=== PATIENT | male | born 1950 | race Caucasian/White ===

== ENCOUNTER → 2018-12-13 | Outpatient (CLI) | payer OTHER ==
[2018-10-29 15:00] VITALS: BP 125/48
[~2018-12-13] MED LIST: BETA15CR5 TP; BUPR150T6 PO; CRESTOR20 MG PO; DULO30CA2 PO; GABA300C18 PO; GLIP5TAB10 PO; MELO7.5T29 PO; PANT40TA77 PO; PIOG1TAB8 PO; TAMS0.4C97 PO; TIZA4CAP PO
--- NOTE | 2018-12-13 23:36 | PAIN ---
DATE OF SERVICE: 12/13/2018 INITIAL CONSULTATION FOR PAIN CLINIC CHIEF COMPLAINT: Low back and bilateral lower extremity pain, right greater than left. HISTORY OF PRESENT ILLNESS: This is a 68-year-old male who presents with history of pain in the low back radiating to bilateral lower extremities, mostly in the posterolateral thighs, posterior gluteus, lateral anterior thigh, medial thigh on the right side, worse with walking and standing. The patient reports it is going on for many years, worse over the past year or so. The patient did have surgery about 2 years ago in 2017, lumbar diskectomy, which he reports helped the pain, but only for a few months and the pain returned exactly as it was. The patient also has some pain in the mid upper back, but his main complaint is low back and right greater than left lower extremity. The patient reports the pain is constant, sharp, stabbing, throbbing, shooting, radiating in the right leg greater than the left, but present bilaterally. The patient reports it is worse with walking, standing, changing positions, getting up from a seated position as awakening him from sleep at night at least 2-3 times, does not affect his bowel or bladder control, but does affect his ability to walk. He is not using any assistive device such as canes or crutches; however. The patient has had previous physical therapy, chiropractic treatment in the past, epidural injections at outside facilities all which have helped the pain to a moderate extent. The patient reports he is taking oxycodone, which does decrease the pain by half a pill 2 weeks ago and Aleve, which helps by a small amount he takes at each night before he goes to sleep. The patient reports still is disturbing his sleep fairly significantly, however. The patient reports no loss of motor function, but significant fatigability with lower extremities with ambulation, standing, walking and even sitting for more than 10-15 minutes, sleeping has some pain as well. The patient rates his disability from 0-10, 10 being the worst, is a 9 with family home responsibilities, recreation, social activity, occupation and sexual behavior, 7 with self-care, 5 with life-support activities. The patient did have MRI scan of the lumbar spine showing L4-L5, severe canal narrowing with broad-based posterior disk bulge and superimposed central disk protrusion with the broad-based disk bulge at L3-L4 as well with mild canal recess narrowing and significant severe canal narrowing at L4-L5. PAST MEDICAL HISTORY: Significant for type 2 diabetes, dizziness, cigarette smoking, arthritis. PAST SURGICAL HISTORY: Previous surgeries include cataract extractions, knee arthroscopy and lumbar surgery at L4-L5 in 2017. CURRENT MEDICATIONS: Include Cymbalta, betamethasone, bupropion, Crestor, gabapentin, glipizide, meloxicam, tizanidine, metformin, pantoprazole, and Flomax. ALLERGIES: The patient has no known drug allergies. FAMILY HISTORY: Significant for no major medical problems or conditions that he lists. SOCIAL HISTORY: The patient drinks about 6-pack of beer every other day. Does not use any illegal, illicit or recreational drugs. Smokes cigarettes, less than a pack a day, but has for 50+ years, continues to smoke. The patient is and lives with his spouse and lives locally in [place], [place]. REVIEW OF SYSTEMS: The patient's review of systems is positive for those items mentioned in history of present illness. All systems reviewed and otherwise negative. It is complete, full and well documented on the patient's chart. PHYSICAL EXAMINATION: VITAL SIGNS: The patient's blood pressure 143/73, pulse 85, respirations 18, temperature 98.2 degrees Fahrenheit. Height is 5 feet 7 inches, weight 234 pounds. GENERAL: The patient is awake, alert, oriented, appropriate, very pleasant demeanor. HEENT: Shows normocephalic, atraumatic. Extraocular movements are intact and symmetrical. Oral cavity: Mucous membranes moist and pink. Dentition is intact. NECK: Shows anterior throat supple without palpable lymphadenopathy noted. Swallow reflex symmetrical. CHEST: Shows normal on inspection. Breath sounds clear to auscultation bilaterally. HEART: Shows S1, S2 clear. No murmurs auscultated. ABDOMEN: Soft, nontender, nondistended. No palpable organomegaly is noted. No rebound or guarding demonstrated. BACK: Shows spine grossly in the midline. Normal-appearing thoracic kyphosis, some minor flattening of lumbar lordotic curvature. Lumbar paraspinous muscle shows symmetrical on inspection, on palpation shows some moderate tenderness diffusely throughout the upper, middle and lower distribution of paraspinous muscles bilaterally, but only diffusely without specific trigger points, without radiation. The patient shows no tenderness over the spinous processes, sacrum or sacroiliac regions. The patient does have well-healed surgical scar noted in the midline in the low lumbar distribution. The patient's back shows good rotational motion both laterally greater than 10 degrees right and left as well as extension greater than 10 degrees, forward flexion 45 degrees without significant increase in pain. EXTREMITIES: Lower extremities show deep tendon reflexes at 1+ in the patellar and tendo calcaneus tendons. Motor exam is approximately 4 on a scale of 5 on the right with dorsiflexion, extension and 5/5 on the left. Quadriceps and hamstring flexion 5/5 bilaterally. Peripheral pulses are 1+ posterior tibia. No peripheral edema is noted. Lower extremities are warm and dry to touch, equal in color and appearance. The patient's straight leg raise noted to be negative for reproduction of radicular symptoms bilaterally. Gaenslen's and Jaime's maneuvers are negative bilaterally as well. The patient is able to stand, stand on his toes with quick loss of balance with putting all his weight on his right leg compared to the left. The patient walks with a slight shuffling gait, does appear to favor the right lower extremity to a moderate extent, not using any assistive devices such as canes or walkers to ambulate. SKIN: Shows warm and dry, good turgor. No edema. No sores, rashes or bruising throughout. IMPRESSION: 1. This is a 68-year-old male with approximate 1-year history of increasing pain in a radicular fashion in the right greater than left lower extremity in L4-L5 dermatomal distribution. 2. MRI scan of lumbar spine as noted. 3. Type 2 diabetes. 4. Arthritis. PLAN: Options were discussed with the patient including conservative medical managements, physical therapies and interventional techniques as he has done physical therapies and continues to do some stretching and strengthening exercises as well on his own and is doing chiropractic treatment currently. He would like to pursue interventional techniques. We discussed a lumbar epidural steroid injection using description as well as anatomical models to describe the procedure. The patient will wait for preauthorization with his insurance provider. I would like to pursue this due to his radicular pain, right greater than left lower extremity in L4-L5 dermatomal distribution. We will plan on the L4-L5 translaminar epidural steroid injection upon return. In the meantime, the patient will try Medrol Dosepak. The patient was given instruction as well as side effects to be aware of, especially increased glucose level and will return to clinic in approximately 2 weeks. We will plan on lumbar epidural steroid injection at that time. YASMIN FELDER MD DR: SHARMAINE/hannah JOB#: [id number] / [id number]
== END | disposition home or self-care (01) ==
LOC: PNCL 08:03
PROVIDERS: ATTEND Anesthesiology
DX: M51.26 Other intervertebral disc displacement, lumbar region (principal); M79.661 Pain in right lower leg; M13.88 Other specified arthritis, other site; E11.9 Type 2 diabetes mellitus without complications; Z98.890 Other specified postprocedural states
CPT/HCPCS: G0463

== ENCOUNTER → 2018-12-27 | Outpatient (CLI) | payer OTHER ==
[2018-10-29 15:00] VITALS: BP 125/48
[~2018-12-27] MED LIST changes: +IOHEXOL 180 MG/ML 10 ML VIAL. ONE; +methylPREDNISolone ACETATE 40 MG/ML VIAL. ONE; +methylPREDNISolone ACETATE 80 MG/ML VIAL. ONE
--- NOTE | 2018-12-27 21:59 | PAIN ---
DATE OF SERVICE: 12/27/2018 DIAGNOSIS: Lumbar radiculopathy with lumbar spinal stenosis and lumbar post-laminectomy syndrome. HISTORY OF PRESENT ILLNESS: The patient is a 68-year-old male who returns for followup status post initial evaluation and preauthorization for lumbar epidural steroid injection. The patient has obtained that now and returns with still significant pain in the low back, bilateral lower extremities. As previously, the patient reports no new motor or sensory deficits, no new bowel or bladder incontinence. The patient described the pain as sharp and shooting, stabbing, constant, severe and unbearable in the low back and legs, posterior gluteus, posterolateral thigh, lateral anterior thighs. The patient reports it is a 10 on a scale of 10 at its worst in the past week 10 on average and 9 at its least and is a 9 today. The patient reports no new motor or sensory deficits, no new bowel or bladder incontinence, better with sitting or lying down, does not awaken him from sleep. PHYSICAL EXAMINATION: VITAL SIGNS: The patient's blood pressure 114/68, pulse 87, respirations 18, temperature 98.2 degrees Fahrenheit, height is 5 feet 8 inches, weight is 232 pounds. GENERAL: The patient is awake, alert, oriented, appropriate, very pleasant demeanor. HEENT: Shows normocephalic, atraumatic. Extraocular movements are intact and symmetrical. Oral cavity: Mucous membranes moist and pink. Dentition is intact. NECK: Shows anterior throat supple without palpable lymphadenopathy noted. Swallow reflex symmetrical. CHEST: Shows normal on inspection. Breath sounds clear to auscultation bilaterally. HEART: Shows S1, S2 clear. No murmurs auscultated. ABDOMEN: Soft, nontender, nondistended. No palpable organomegaly is noted. No rebound or guarding demonstrated. BACK: Shows spine grossly in the midline. Normal appearing thoracic kyphosis, some flattening of lumbar lordotic curvature with well-healed surgical scarring noted. Lumbar paraspinous muscle shows symmetrical on inspection, with palpation shows some moderate tenderness diffusely bilaterally, but only diffusely without radiation. EXTREMITIES: The patient's lower extremities show deep tendon reflexes 1+ patellar and tendo calcaneus tendons. Motor exam is approximately 4 on a scale of 5 on the right and 5/5 on the left dorsiflexion and extension. Peripheral pulses are 1+ posterior tibia. No peripheral edema is noted. Options were discussed with the patient. The patient's old chart was reviewed as his current medication regimen updated. Current review of systems updated today as well. We will proceed with a lumbar epidural steroid injection today with fluoroscopic guidance. Risks were again discussed including, but not limited to bleeding, infection, possibility of epidural hematoma, subsequent neurological compromise, dural puncture, headaches, spinal cord and/or nerve damage, side effects of steroid medication and poor results regarding pain control. The patient understands and wished to proceed. The patient will return to clinic in approximately 2 weeks for followup. She was counselled on return appointment, activity level and side effects to be aware of. DIAGNOSES: Lumbar radiculopathy with lumbar spinal stenosis, lumbar post-laminectomy syndrome. PROCEDURE: Lumbar epidural steroid injection, translaminar approach L5-S1 level using C-arm fluoroscopic guidance under sterile prep and drape using local anesthetic. MEDICATION INJECTED: The patient received a total of 120 mg Depo-Medrol plus 10 mL of preservative-free normal saline and 2 mL of contrast. CONDITION AT DISCHARGE: Stable. The patient tolerated the procedure well, had no complications. YASMIN FELDER MD DR: SHARMAINE/hannah JOB#: [id number] / [id number]
== END | disposition home or self-care (01) ==
LOC: PNCL 08:58
PROVIDERS: ATTEND Anesthesiology
DX: M48.061 Spinal stenosis, lumbar region without neurogenic claudication (principal); M54.16 Radiculopathy, lumbar region; M96.1 Postlaminectomy syndrome, not elsewhere classified; G47.30 Sleep apnea, unspecified; E11.9 Type 2 diabetes mellitus without complications; N40.0 Benign prostatic hyperplasia without lower urinary tract symptoms; E78.00 Pure hypercholesterolemia, unspecified; Z98.49 Cataract extraction status, unspecified eye; Z79.899 Other long term (current) drug therapy
CPT/HCPCS: 62323; J1030; J1040; Q9965

== ENCOUNTER → 2019-01-09 | Outpatient (CLI) | payer OTHER ==
[2018-10-29 15:00] VITALS: BP 125/48
[~2019-01-09] MED LIST changes: -IOHEXOL 180 MG/ML 10 ML VIAL. ONE; -methylPREDNISolone ACETATE 40 MG/ML VIAL. ONE; -methylPREDNISolone ACETATE 80 MG/ML VIAL. ONE
--- NOTE | 2019-01-10 00:11 | PAIN ---
DATE OF SERVICE: 01/09/2019 PROGRESS NOTE FOR PAIN CLINIC DIAGNOSES: Lumbar radiculopathy with lumbar spinal stenosis, post-lumbar laminectomy syndrome. HISTORY OF PRESENT ILLNESS: The patient is a 68-year-old male who returns for followup for status post lumbar epidural steroid injection x 1. The patient reports initially about 70% improvement for the first few weeks after the injection, now it is about 50% improvement overall. The pain is returning now in the low back, greater in the right than left lower extremity in the posterior gluteus, posterior thigh, posterior calf, radiating into the lower extremities, again much improved, but he has been increasing his activity, walking, doing work activities, household activities with greater ease and comfort, sleeping better at night, does not awaken him from sleep. The patient reports it is becoming more sharp in the back and the legs, radiating, tingling and burning at times, shooting and can be cramping at times as well. The patient reports it is only mostly noticeable with walking, standing, sitting is better as is lying down. The patient reports his pain is average 7-9 on a scale of 10 over the past week, 9 at its worst, 7 at its least and is a 7 today. The patient reports no new motor or sensory deficits, no new bowel or bladder incontinence or other complaints. PHYSICAL EXAMINATION: VITAL SIGNS: The patient's blood pressure 146/64, pulse 84, respirations 18, temperature 98.2 degrees Fahrenheit, height is 5 feet 8 inches, weight is 237 pounds. GENERAL: The patient is awake, alert, oriented, appropriate, very pleasant demeanor. HEENT: Head shows normocephalic, atraumatic. Extraocular movements are intact and symmetrical. Oral cavity: Mucous membranes moist and pink. Dentition is intact. NECK: Shows anterior throat supple without palpable lymphadenopathy noted. Swallow reflex symmetrical. CHEST: Shows normal on inspection. Breath sounds clear to auscultation bilaterally. HEART: Shows S1, S2 clear. No murmurs auscultated. ABDOMEN: Soft, nontender, nondistended. No palpable organomegaly is noted. No rebound or guarding demonstrated. BACK: Shows spine grossly in the midline. Normal appearing thoracic kyphosis and minor flattening of lumbar lordotic curvature with well-healed surgical scarring noted in the lumbar distribution. Lumbar paraspinous muscle shows symmetrical inspection. On palpation shows moderate tenderness diffusely bilaterally in the lower lumbar distribution, but only diffusely without radiation. The patient has good rotational motion of lumbar spine, both laterally as well as extension and flexion without difficulty. EXTREMITIES: Lower extremities show deep tendon reflexes at 1+ in the patellar and tendo calcaneus tendons are equal. Motor exam is 4 on a scale of 5 on the right with dorsiflexion, extension and 5/5 on the left. Peripheral pulses are 1+ posterior tibia. No peripheral edema is noted. Options were discussed with the patient. The patient's old chart was reviewed as his current medication regimen updated. Current review of systems updated today as well. We will proceed with a preauthorization for second lumbar epidural steroid injection. The patient did very well for the first one, still with L5-S1 radiculopathy in the right greater than left lower extremities. We will plan on second translaminar L5-S1 level lumbar epidural steroid injection upon improvement. The patient will continue with stretching and strengthening exercises that he has been doing. Continue walking daily as he is doing as well. We will have him return in approximately 1 week to plan on second lumbar epidural steroid injection at that time. YASMIN FELDER MD DR: SHARMAINE/hannah JOB#: [id number] / [id number]
== END | disposition home or self-care (01) ==
LOC: PNCL 08:24
PROVIDERS: ATTEND Anesthesiology
DX: M48.061 Spinal stenosis, lumbar region without neurogenic claudication (principal); M54.16 Radiculopathy, lumbar region; M96.1 Postlaminectomy syndrome, not elsewhere classified
CPT/HCPCS: G0463

== ENCOUNTER → 2019-01-24 | Outpatient (CLI) | payer OTHER ==
[2018-10-29 15:00] VITALS: BP 125/48
[~2019-01-24] MED LIST changes: +IOHEXOL 180 MG/ML 10 ML VIAL. ONE; +methylPREDNISolone ACETATE 40 MG/ML VIAL. ONE; +methylPREDNISolone ACETATE 80 MG/ML VIAL. ONE
--- NOTE | 2019-01-24 12:39 | PN ---
DATE: 01/24/2019 PROGRESS NOTE FOR PAIN CLINIC DIAGNOSES: Lumbar radiculopathy with lumbar spinal stenosis and post-lumbar laminectomy syndrome. HISTORY OF PRESENT ILLNESS: The patient is a 68-year-old male who returns for followup status post lumbar epidural steroid injection x1 with about a 70% improvement. Initially, the patient reports pain in the low back and bilateral lower extremities much better. He increased his activity with greater distance walking, doing work activities, household activities with much greater ease and comfort, sleeping well at night about 7-8 hours at a times and it does not awaken him from sleep. The patient reports no new motor or sensory deficits. He describes the pain in the low back and bilateral lower extremities, radiating to posterior gluteus, posterior lateral thighs, posterior calves with shooting, stabbing pain that becomes constant with extended walking or standing, but again much improved since last visit. The patient reports his pain is 8 on a scale of 10 at its worst over the past week, 6-7 on average, 6 at its least, and is 6 today. PHYSICAL EXAMINATION: VITAL SIGNS: The patient's blood pressure 146/80, pulse 91, respirations 16, temperature 98.2 degrees Fahrenheit, weight is 233 pounds. GENERAL: The patient is awake, alert, oriented, appropriate, very pleasant demeanor. HEENT: Shows normocephalic, atraumatic. Extraocular movements are intact and symmetrical. Oral cavity: Mucous membranes are moist and pink. Dentition is intact. NECK: Anterior throat supple without palpable lymphadenopathy noted. Swallow reflex is symmetrical. CHEST: Shows normal on inspection. Breath sounds clear to auscultation bilaterally. HEART: Shows S1, S2 clear. No murmurs auscultated. ABDOMEN: Soft, nontender, nondistended. No palpable organomegaly is noted. No rebound or guarding demonstrated. BACK: Shows spine grossly in the midline. Normal appearing thoracic kyphosis and minor flattening of lumbar lordotic curvature with well-healed surgical scarring noted in the lumbar distribution. Lumbar paraspinous muscle shows symmetrical on inspection, on palpation shows some moderate tenderness diffusely, bilaterally going diffusely without significant radiation. The patient has good rotational motion of lumbar spine, both laterally as well as extension and flexion without significant pain reported. EXTREMITIES: Lower extremities show deep tendon reflexes at 1+ in the patella and tendo calcaneus tendons. Motor exam is strong with approximately 4 on a scale of 5 right dorsiflexion, extension, 5/5 on the left, but intact. Peripheral pulses are 1+ posterior tibia. No peripheral edema is noted bilaterally. Options were discussed with the patient. The patient's old chart was reviewed as his current medication regimen updated. Current review of systems updated today as well. We will proceed with a second lumbar epidural steroid injection today with fluoroscopic guidance. Risks were again discussed including, but not limited to bleeding, infection, possibility of epidural hematoma, subsequent neurological compromise, dural puncture, headaches, spinal cord and/or nerve damage, side effects of steroid medication and poor results regarding pain control. The patient understands and wished to proceed. The patient will return to clinic in approximately 2 weeks for followup. She was counseled on return appointment, activity level and side effects to be aware of. DIAGNOSES: Lumbar radiculopathy with lumbar spinal stenosis, lumbar post-laminectomy syndrome. PROCEDURE: Lumbar epidural steroid injection, translaminar approach L5-S1 level using C-arm fluoroscopic guidance under sterile prep and drape using local anesthetic. MEDICATION INJECTED: A total of 120 mg Depo-Medrol plus 10 mL of preservative-free normal saline and 2 mL of contrast. CONDITION AT DISCHARGE: Stable. The patient tolerated the procedure well, had no complications. YASMIN FELDER MD DR: SHARMAINE/hannah JOB#: [id number] / [id number]
== END ==
LOC: PNCL 08:32
PROVIDERS: ATTEND Anesthesiology
DX: M54.16 Radiculopathy, lumbar region (principal); M48.061 Spinal stenosis, lumbar region without neurogenic claudication; M96.1 Postlaminectomy syndrome, not elsewhere classified
CPT/HCPCS: 62323; J1030; J1040; Q9965

== ENCOUNTER → 2020-09-06 | Outpatient (CLI) | payer MEDICARE ==
[2018-10-29 15:00] VITALS: BP 125/48
[~2020-09-06] MED LIST changes: +BUPR150T21 PO; -BUPR150T6 PO; +BUPR300T92 PO; +GABA600T PO; +GLIP10TA13 PO; +METF-658 PO
--- NOTE | 2020-09-06 13:34 | PDOC ---
Progress Note - Pain Clinic Date of Service: DOS: DATE: 09/06/20 TIME: 13:32 Diagnosis: Dx: Lumbar radiculopathy with lumbar spinal stenosis and lumbar postlaminectomy syndrome History or Present Illness: HPI: 70-year-old male returns for follow-up last seen January 2019. Patient had undergone lumbar epidural steroid injection x2 at that time with very good results near 75% improvement patient reports that over the past year or year and a half his dad's been building up slowly although he has been increasing his activity with much greater frequency recently is becoming more noticeable in the low back and legs patient reports is slightly more on the right than the left but present bilaterally in the posterior gluteus radiating posterior thighs and calves into both of the feet as well as across the low back patient reports is worse with standing walking changing positions bending stooping or standing for more than about 10 to 15 minutes patient reports is better with sitting or laying down but does awaken him sleep about once every 2-3 hours patient reports its sharp pain described as burning and aching severe in the lower extremities shooting and radiating as well as stabbing in the back patient reports is a 10 on scale 10 at all times over the past week worst least and average and is a 10 today. Patient reports no new motor or sensory deficits no new bowel or bladder incontinence or other complaints. Physical Exam: VS: Blood pressure is 131/78 pulse 85 respiration 16 temperature 97.9 F height is 5 feet 6 inches weight is 227 pounds PE: PHYSICAL EXAMINATION: GENERAL: The patient is awake, alert, oriented, appropriate, very pleasant demeanor HEENT: Shows normocephalic, atraumatic. Extraocular movements are intact and sy mmetrical. Oral cavity: Mucous membranes moist and pink. Dentition is intact. NECK: Shows anterior throat supple without palpable lymphadenopathy noted. Swallow reflex symmetrical. CHEST: Shows normal on inspection. Breath sounds are clear bilaterally, distant but no rales rhonchi wheezes auscultated. HEART: Shows S1, S2 clear. No murmurs auscultated. ABDOMEN: Soft, nontender, nondistended, obese. No palpable organomegaly is noted. No rebound or guarding demonstrated. BACK: Shows spine grossly in the midline. Normal-appearing cervical lordotic curvature. There is increased thoracic kyphosis, some flattening of the lumbar lordotic curvature. Patient has midline well-healed surgical scar. Lumbar paraspinous muscles show symmetrical on inspection, on palpation shows some moderate tenderness diffusely throughout the upper, middle and lower distribution of the paraspinous muscles bilaterally and also into the lower thoracic paraspinous musculature, firm and tender, but without specific trigger points, without radiation of pain. The patient has good rotational motion of the lumbar spine, both laterally as well as extension and flexion without significant difficulty. No tenderness over the spinous processes, sacrum or sacroiliac regions. EXTREMITIES: Lower extremities show deep tendon reflexes 1+ in the patellar and tendo calcaneus tendons. Motor exam is 4 on a scale of 5 with right dorsiflexion, extension, quadriceps and hamstring flexion and 5/5 on the left. Peripheral pulses are 1+ posterior tibial. No peripheral edema is noted bilaterally. Lower extremities are warm and dry to touch, equal in color and appearance. SKIN: Shows warm and dry, good turgor. No edema. No sores, rashes or bruising throughout. Procedure: Procedure: Options discussed with the patient. Patient chart was reviewed his current medication regimen updated current review of systems updated today as well. We will proceed with a lumbar epidural steroid injection today with fluoroscopic guidance. Risks were discussed including but not limited to: Bleeding, infection, possibility of epidural hematoma and subsequent neurological compromise, dural puncture, headaches, spinal cord and/or nerve damage, side effects of steroid medication, and poor results regarding pain control. Patient understands and wished to proceed. Patient will return to the clinic in approximate 2 weeks for follow-up, was counseled as to return appointment activity level and side effects to be aware of. Medication Injected: Med Injected: Procedure is lumbar epidural steroid injection under local anesthetic using sterile prep and drape at the L5-S1 level using C-arm fluoroscopic guidance in both AP and lateral views medications injected is 120 mg Depo-Medrol +10mL preservative-free normal saline and 2 mL contrast- condition at discharge is stable patient tolerated procedure well had no complications. Condition at Discharge: Condition at Discharge: Condition at discharge is stable, patient tolerated procedure well and had no complications. YASMIN FELDER MD September 06, 2020 13:34
--- NOTE | 2020-09-06 13:35 | PDOC4 ---
PROCEDURE Procedure Patient was consented for lumbar epidural steroid injection. Risks were dis cussed including but not limited to: Bleeding, infection, possibility of epidural hematoma and subsequent neurological compromise, dural puncture, headaches, spinal cord and/or nerve damage, side effects of steroid medication, and poor results regarding pain control. Patient understands and wished to proceed. Procedure is lumbar epidural steroid injection under local anesthetic using sterile prep and drape at the L5-S1 level using C-arm fluoroscopic guidance in both AP and lateral views medications injected is 120 mg Depo-Medrol +10mL preservative-free normal saline and 2 mL contrast- condition at discharge is stable patient tolerated procedure well had no complications. YASMIN FELDER MD September 06, 2020 13:35
== END | disposition home or self-care (01) ==
LOC: PNCL 12:44
PROVIDERS: ATTEND Anesthesiology
DX: M54.16 Radiculopathy, lumbar region (principal); M96.1 Postlaminectomy syndrome, not elsewhere classified; M48.061 Spinal stenosis, lumbar region without neurogenic claudication; E78.00 Pure hypercholesterolemia, unspecified; G47.30 Sleep apnea, unspecified; E11.9 Type 2 diabetes mellitus without complications; N40.0 Benign prostatic hyperplasia without lower urinary tract symptoms; F17.210 Nicotine dependence, cigarettes, uncomplicated; Z79.84 Long term (current) use of oral hypoglycemic drugs; Z79.899 Other long term (current) drug therapy; Z98.890 Other specified postprocedural states; Z72.89 Other problems related to lifestyle
CPT/HCPCS: 62323; J1030; J1040; Q9965

== ENCOUNTER → 2020-09-20 | Outpatient (CLI) | payer MEDICARE ==
[2018-10-29 15:00] VITALS: BP 125/48
--- NOTE | 2020-09-20 15:40 | PDOC ---
Progress Note - Pain Clinic Date of Service: DOS: DATE: 09/20/20 TIME: 15:37 Diagnosis: Dx: Lumbar radiculopathy with lumbar spinal stenosis and lumbar postlaminectomy syndrome History or Present Illness: HPI: 70-year-old male returns for follow-up status post lumbar epidural steroid action x1. Patient reports he did well but only for about the first 2 weeks or so the pain was fairly quick to return over the past few days in the low back and bilateral lower extremities right greater than left. Patient reports he was initially increasing his distance walking doing work activities household activities and travel with greater ease and comfort patient just returned from a car trip to [place] and back reports this may have increased some of the pain or kept it from getting is improved as able reflected to patient reports his pain is a 9 on scale 10 is worse over the past week 9 on average 9 its least is a 9 today patient describes it as stabbing and shooting in the lower extremities sharp in the back constant severe rating the posterior gluteus posterior lateral thighs and into the posterior calves as well as the medial calves. Patient reports her right side is essentially equal to the left in the back but the right leg is more painful than the left. Patient reports no new motor or sensory deficits no new bowel or bladder incontinence or other complaints reports still wakes him from sleep about every 2-3 hours over the past week or so but prior to that he was sleeping better. Physical Exam: VS: Blood pressure is 146/73 pulse 79 respirations 16 temperature 98.4 F weight is 229 pounds PE: PHYSICAL EXAMINATION: GENERAL: The patient is awake, alert, oriented, appropriate, very pleasant demeanor HEENT: Shows normocephalic, atraumatic. Extraocular movements are intact and symmetrical. Oral cavity: Mucous membranes moist and pink. Dentition is intact . NECK: Shows anterior throat supple without palpable lymphadenopathy noted. Swallow reflex symmetrical. CHEST: Shows normal on inspection. Breath sounds are clear bilaterally, distant but no rales or rhonchi. HEART: Shows S1, S2 clear. No murmurs auscultated. ABDOMEN: Soft, nontender, nondistended, obese. No palpable organomegaly is noted. BACK: Shows spine grossly in the midline. Normal-appearing cervical lordotic curvature. There is slightly increased thoracic kyphosis, some minor flattening of the lumbar lordotic curvature. Lumbar paraspinous muscles show symmetrical on inspection, on palpation shows some moderate tenderness diffusely throughout the upper, middle and lower distribution of the paraspinous muscles, but without specific trigger points, without radiation of pain. The patient has good rotational motion of the lumbar spine, both laterally as well as extension and flexion without significant difficulty. EXTREMITIES: Lower extremities show deep tendon reflexes 1+ in the patellar and tendo calcaneus tendons. Motor exam is 4 on a scale of 5 with right dorsiflexion, extension, quadriceps and hamstring flexion and []/5 on the left. Peripheral pulses are 1+ posterior tibial. No peripheral edema is noted bilaterally. Lower extremities are warm and dry to touch, equal in color and appearance. SKIN: Shows warm and dry, good turgor. No edema. No sores, rashes or bruising throughout. Procedure: Procedure: Options were discussed with the patient. Patient's old chart was reviewed his his current medication regimen updated current review of systems updated today as well. We will proceed with a second in the series lumbar epidural steroid injection stable fluoroscopic guidance. Risks were discussed including but not limited to: Bleeding, infection, possibility of epidural hematoma and subsequent neurological compromise, dural puncture, headaches, spinal cord and/or nerve damage, side effects of steroid medication, and poor results regarding pain control. Patient understands and wished to proceed. Patient will return to the clinic in approximate 2 weeks for follow-up, was counseled as return appointment activity level and side effects to be aware of. Medication Injected: Med Injected: Procedure is lumbar epidural steroid injection under local anesthetic using sterile prep and drape at the L5 S1 level using C-arm fluoroscopic guidance in both AP and lateral views medications injected is 120 mg Depo-Medrol +10mL preservative-free normal saline and 2 mL contrast- condition at discharge is stable patient tolerated procedure well had no complications. Condition at Discharge: Condition at Discharge: Condition at discharge stable, patient tolerated the procedure well and had no complications. YAMSIN FELDER MD Sep 20, 2020 15:40
--- NOTE | 2020-09-20 15:41 | PDOC4 ---
PROCEDURE Procedure Patient was consented for lumbar epidural steroid injection. Risks were dis cussed including but not limited to: Bleeding, infection, possibility of epidural hematoma and subsequent neurological compromise, dural puncture, headaches, spinal cord and/or nerve damage, side effects of steroid medication, and poor results regarding pain control. Patient understands and wished to proceed. Procedure is lumbar epidural steroid injection under local anesthetic using sterile prep and drape at the L5-S1 level using C-arm fluoroscopic guidance in both AP and lateral views medications injected is 120 mg Depo-Medrol +10mL preservative-free normal saline and 2 mL contrast- condition at discharge is stable patient tolerated procedure well had no complications. YASMIN FELDER MD Sep 20, 2020 15:41
== END | disposition home or self-care (01) ==
LOC: PNCL 14:22
PROVIDERS: ATTEND Anesthesiology
DX: M48.061 Spinal stenosis, lumbar region without neurogenic claudication (principal); M54.16 Radiculopathy, lumbar region; M96.1 Postlaminectomy syndrome, not elsewhere classified; E78.00 Pure hypercholesterolemia, unspecified; E11.9 Type 2 diabetes mellitus without complications; G47.30 Sleep apnea, unspecified; N40.0 Benign prostatic hyperplasia without lower urinary tract symptoms; F12.10 Cannabis abuse, uncomplicated; Z79.84 Long term (current) use of oral hypoglycemic drugs; Z79.899 Other long term (current) drug therapy; Z98.890 Other specified postprocedural states; Z72.89 Other problems related to lifestyle
CPT/HCPCS: 62323; J1030; J1040; Q9965

== ENCOUNTER → 2020-10-11 | Outpatient (CLI) | payer MEDICARE ==
[2018-10-29 15:00] VITALS: BP 125/48
[~2020-10-11] MED LIST changes: +EMPA10TA PO; -IOHEXOL 180 MG/ML 10 ML VIAL. ONE; -methylPREDNISolone ACETATE 40 MG/ML VIAL. ONE; -methylPREDNISolone ACETATE 80 MG/ML VIAL. ONE
[2020-10-11 15:02] LABS: BASO # 0.1 x10^3/uL (0.0-0.2); BASO % 1 % (0-3); EOS # 0.1 x10^3/uL (0.0-0.7); EOS % 2 % (0-3); HEMATOCRIT 42.9 % (39.0-53.0); HEMOGLOBIN 14.7 g/dL (13.0-17.5); LYMPH # 1.5 x10^3/uL (1.0-4.8); LYMPH % 23 % (24-48); MEAN CORPUSCULAR HEMOGLOBIN 33 pg (25-35); MEAN CORPUSCULAR HGB CONC 34 g/dL (31-37); MEAN CORPUSCULAR VOLUME 96 fL (79-100); MONO # 0.7 x10^3/uL (0.0-1.1); MONO % 11 % (0-9); NEUT # 4.1 x10^3/uL (1.8-7.7); NEUT % 63 % (31-73); PLATELET COUNT 200 x10^3/uL (140-400); RED BLOOD COUNT 4.45 x10^6/uL (4.30-5.70); WHITE BLOOD COUNT 6.5 x10^3/uL (4.0-11.0)
[2020-10-11 15:29] LABS: ALBUMIN 3.8 g/dL (3.4-5.0); ALBUMIN/GLOBULIN RATIO 1.2 (1.0-1.7); CREATININE 0.6 mg/dL (0.7-1.3); GFR 132.8; POTASSIUM 4.9 mmol/L (3.5-5.1); TOTAL BILIRUBIN 0.4 mg/dL (0.2-1.0)
--- NOTE | 2020-10-15 14:22 | PREOP HP ---
DATE OF SERVICE: 10/20/2020 PREOPERATIVE HISTORY AND PHYSICAL HISTORY OF PRESENT ILLNESS: The patient is a pleasant 70-year-old who is having difficulty with severe back and bilateral lateral thigh pain. The left side is equal to the right. He said the problem has been slowly worsening. Some of the pain radiates to his coccyx region as well. He rates his pain 10/10, all of the time. He says his pain is constant and increases with standing and walking. He has some relief with sitting. Epidural steroid injections were done in 2019, which helped him temporarily. He had an epidural steroid injection done more recently, which he said gave him minimal relief. He has had previous surgery at L4-5. PAST MEDICAL HISTORY: Arthritis, chest pain, kidney disease, diabetes. CURRENT MEDICATIONS: Betamethasone, bupropion, duloxetine, rosuvastatin, gabapentin, glipizide, meloxicam, metformin, pantoprazole, pioglitazone, tizanidine, tamsulosin, levofloxacin, lidocaine. ALLERGIES: No known drug allergies. PAST SURGICAL HISTORY: Eye surgery in 2016, lumbar surgery at [facility]. FAMILY HISTORY: Cancer, diabetes, heart disease, hypertension, spine problems. 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 . Denies substance abuse. Smokes 1 pack per day for 20 years. Drinks alcohol with 8 beers per day. REVIEW OF SYSTEMS: A 12-point review of systems was performed and is noncontributory except that mentioned above. PHYSICAL EXAMINATION: GENERAL: Alert, pleasant, and in no acute distress. HEENT: Head normocephalic, atraumatic. SKIN: Warm and dry. BACK: Well-healed incision. MUSCULOSKELETAL: Lumbar paraspinal muscle bulk is normal, restricted range of motion of the lumbar spine, [id number] tenderness of the lower lumbar spine with palpation, normal range of motion of the lower extremities bilaterally. EXTREMITIES: No clubbing, cyanosis or edema. NEUROLOGIC: Alert and oriented x 3. Normal recent and remote memory. Strength is 5/5 in the lower extremities bilaterally. Sensory was intact to light touch in the lower extremities bilaterally. Reflexes were present and symmetric in the lower extremities bilaterally. Negative straight leg raising bilaterally. Normal gait. IMAGING: I reviewed a lumbar MRI scan from 08/31/2020. On that study, the primary problems are at L4-5 where he has developed severe trefoil-type spinal canal stenosis. There are also postoperative changes at that level. The changes have progressed since a study done in 2019. ASSESSMENT AND PLAN: He has severe lumbar spinal stenosis at L4-5, which has become more severe. At this point, my feeling is that he should undergo lumbar surgery. It is complicated because of the fact that he has had previous surgery at this level. At this point, I would perform a generous laminectomy to see if he can gain some relief. I did speak with him about this. He understands the risk of the surgery as well as the technique involved and the expected postoperative course. He would like to go ahead. BRYANT DR: Charles TID: [id number]
== END ==
LOC: SURGPAT 13:38
PROVIDERS: ATTEND Neurological Surgery
DX: Z01.818 Encounter for other preprocedural examination (principal); M48.062 Spinal stenosis, lumbar region with neurogenic claudication
CPT/HCPCS: 36415; 80053; 85025; 87641

== ENCOUNTER 2020-10-20 10:10 | Observation (INO) | payer MEDICARE ==
[2020-10-11 14:25] VITALS: BP 133/61
--- NOTE | 2020-10-19 16:47 | PREOP HP ---
DATE OF SERVICE: 10/20/2020 PREOPERATIVE HISTORY AND PHYSICAL HISTORY OF PRESENT ILLNESS: The patient is a pleasant 70-year-old who is having difficulty with severe back and bilateral lateral thigh pain. The left side is equal to the right. He said the problem has been slowly worsening. Some of the pain radiates to his coccyx region as well. He rates his pain 10/10, all of the time. He says his pain is constant and increases with standing and walking. He has some relief with sitting. Epidural steroid injections were done in 2019, which helped him temporarily. He had an epidural steroid injection done more recently, which he said gave him minimal relief. He has had previous surgery at L4-5. PAST MEDICAL HISTORY: Arthritis, chest pain, kidney disease, diabetes. CURRENT MEDICATIONS: Betamethasone, bupropion, duloxetine, rosuvastatin, gabapentin, glipizide, meloxicam, metformin, pantoprazole, pioglitazone, tizanidine, tamsulosin, levofloxacin, lidocaine. ALLERGIES: No known drug allergies. PAST SURGICAL HISTORY: Eye surgery in 2016, lumbar surgery at [facility]. FAMILY HISTORY: Cancer, diabetes, heart disease, hypertension, spine problems. 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 . Denies substance abuse. Smokes 1 pack per day for 20 years. Drinks alcohol with 8 beers per day. REVIEW OF SYSTEMS: A 12-point review of systems was performed and is noncontributory except that mentioned above. PHYSICAL EXAMINATION: GENERAL: Alert, pleasant, and in no acute distress. HEENT: Head normocephalic, atraumatic. SKIN: Warm and dry. BACK: Well-healed incision. MUSCULOSKELETAL: Lumbar paraspinal muscle bulk is normal, restricted range of motion of the lumbar spine, [id number] tenderness of the lower lumbar spine with palpation, normal range of motion of the lower extremities bilaterally. EXTREMITIES: No clubbing, cyanosis or edema. NEUROLOGIC: Alert and oriented x 3. Normal recent and remote memory. Strength is 5/5 in the lower extremities bilaterally. Sensory was intact to light touch in the lower extremities bilaterally. Reflexes were present and symmetric in the lower extremities bilaterally. Negative straight leg raising bilaterally. Normal gait. IMAGING: I reviewed a lumbar MRI scan from 08/31/2020. On that study, the primary problems are at L4-5 where he has developed severe trefoil-type spinal canal stenosis. There are also postoperative changes at that level. The changes have progressed since a study done in 2019. ASSESSMENT AND PLAN: He has severe lumbar spinal stenosis at L4-5, which has become more severe. At this point, my feeling is that he should undergo lumbar surgery. It is complicated because of the fact that he has had previous surgery at this level. At this point, I would perform a generous laminectomy to see if he can gain some relief. I did speak with him about this. He understands the risk of the surgery as well as the technique involved and the expected postoperative course. He would like to go ahead. BRYANT DR: Charles TID: [id number]
[~2020-10-20] VITALS: Ht 170.2 cm; Wt 100.0 kg
[2020-10-20] VITALS (7 sets, daily range): BP systolic 130–150; BP diastolic 57–65
[~2020-10-20 10:10] MED LIST changes: +BUPIVACAINE-EPI 0.5%-1:200000 MPF 30 ML VIAL. ONE; +GELATIN SPONGE SIZE 100. ONE; +HYDROmorphone 2 MG/ML VIAL IVP PRN; +IV RINGERS,LACTATED 1000ML 1,000 ML IV SCH; +KETOROLAC 60 MG/2 ML VIAL. ONE; +MORPHINE SULFATE 2 MG/ML INJ. IVP PRN; +PROCHLORPERAZINE 10 MG/2 ML VIAL. IVP PRN; +THROMBIN TOPICAL 20,000 UNIT SPRAY.SYRN KIT TP ONE; +fentaNYL PF VIAL 100 MCG/2 ML VIAL IVP PRN
[2020-10-20] MEDS ORDERED: ROCURONIUM 50 MG/5 ML VIAL. ONE (10:59)
[2020-10-20] MEDS ORDERED: REMIFENTANIL 2 MG VIAL. IV ONE (11:00)
[2020-10-20] MEDS ORDERED: DEXAMETHASONE SOD PHOS 20 MG/5 ML VIAL. ONE (11:03)
[2020-10-20] MEDS ORDERED: PROPOFOL 10 MG/ML (20ML) VIAL. IV ONE (11:03)
[2020-10-20] MEDS ORDERED: PROPOFOL 50 ML IV ONE ×4 (11:03→18:39)
[2020-10-20] MEDS ORDERED: PHENYLEPHRINE 10 MG/ML VIAL. ONE (11:03)
[2020-10-20] MEDS ORDERED: LIDOCAINE 2% PF 5 ML VIAL. ONE (11:03)
[2020-10-20] MEDS ORDERED: DESFLURANE > 120 MINUTES IH ONE ×2 (11:03→17:51)
[2020-10-20] MEDS: INSULIN LISPRO 100 UNIT/ML 3ML VIAL for OP,RR ONLY. SQ PRN ×2 (11:45→20:08)
[2020-10-20] MEDS ORDERED: GLYCOPYRROLATE 1 MG/5 ML VIAL. ONE (14:18)
[2020-10-20] MEDS ORDERED: SEVOFLURANE 61 TO 120 MINUTES. IH ONE (17:11)
[2020-10-20] MEDS ORDERED: REMIFENTANIL 1 MG VIAL. IV ONE (17:35)
[2020-10-20] MEDS ORDERED: 0.9 % SODIUM CHLORIDE 20 ML VIAL. IJ ONE (17:35)
[2020-10-20] MEDS ORDERED: fentaNYL PF VIAL 100 MCG/2 ML VIAL ONE (18:20)
[2020-10-20] MEDS ORDERED: ONDANSETRON PF 4 MG/2 ML VIAL. ONE (18:21)
[2020-10-20] MEDS ORDERED: NEOSTIGMINE METHYLSULFATE 5 MG/5 ML SYRINGE. ONE (19:01)
--- NOTE | 2020-10-20 19:25 | PDOC4 ---
OPERATIVE NOTE Date: Date: Oct 20, 2020 Pre-Op Diagnosis: lumbar stenosis Post-Op Diagnosis: same Procedure Performed: left direct laminectomy L4-5, reop Surgeon: Gaby ASSIST: Roque Blood Loss: 50 cc Specimans Obtained: decompression Complications: none BRITTANI STEVENS MD Oct 20, 2020 19:25
[2020-10-20] MEDS ORDERED: ALBUTEROL SULFATE 2.5 MG/3 ML NEBU. ONE (19:27)
[2020-10-20] MEDS ORDERED: ONDANSETRON PF 4 MG/2 ML VIAL. IVP PRN (19:30)
[2020-10-20] MEDS ORDERED: 0.9 % SODIUM CHLORIDE 10 ML DISP.SYRIN. IV PRN (19:30)
[2020-10-20] MEDS ORDERED: diphenhydrAMINE HCL 25 MG CAPSULE PO PRN (19:30)
[2020-10-20] MEDS ORDERED: ACETAMINOPHEN 325 MG TABLET. PO PRN (19:30)
[2020-10-20] MEDS ORDERED: MAG HYDROX/ALUMINUM HYD/SIMETH 30 ML ORAL.SUSP PO PRN (19:30)
[2020-10-20] MEDS ORDERED: NALOXONE 0.4 MG/ML VIAL. IV PRN (19:30)
[2020-10-20] MEDS ORDERED: tiZANidine 4 MG TABLET. PO PRN (19:30)
[2020-10-20] MEDS ORDERED: DEXTROSE 50% 25 GM / 50ML DISP.SYRIN. IV PRN (19:30)
[2020-10-20] MEDS ORDERED: CALCIUM CARBONATE 500 MG TAB.CHEW PO PRN (19:30)
[2020-10-20] MEDS ORDERED: MAGNESIUM HYDROXIDE 2,400 MG/30 ML ORAL.SUSP. PO PRN (19:30)
[2020-10-20] MEDS ORDERED: METHOCARBAMOL 750 MG TABLET PO PRN (19:30)
[2020-10-20] MEDS ORDERED: oxyCODONE/APAP 5/325 1 TAB TABLET PO PRN (19:30)
[2020-10-20] MEDS ORDERED: INSULIN LISPRO 100 UNIT/ML 3ML VIAL for OP,RR ONLY. SQ ONE ×2 (20:10)
--- NOTE | 2020-10-20 20:25 | NUR ---
Admit from PACU. A&OALVIN VSS. Has non-productive cough and "scratchy throat." Ice chips taken w/o N/V. Surgical dressing D/I.
[2020-10-20] MEDS ORDERED: POTASSIUM CL 20MEQ-0.45% NACL 1,000 ML IV SCH (21:00)
[2020-10-20] MEDS ORDERED: fentaNYL PF VIAL 100 MCG/2 ML VIAL IVP PRN (21:00)
[2020-10-20] MEDS: GABAPENTIN 300 MG CAPSULE. PO SCH (21:48)
[2020-10-20] MEDS: DOCUSATE SODIUM 100 MG CAPSULE. PO SCH (21:48)
[2020-10-20] MEDS: oxyCODONE/APAP 5/325 1 TAB TABLET PO PRN (21:49)
[2020-10-20] MEDS ORDERED: TAMSULOSIN 0.4 MG CAP.ER.24H. PO SCH (23:50)
[2020-10-21 03:00] VITALS: BP 123/68
[2020-10-21 06:23] VITALS: BP 136/72
--- NOTE | 2020-10-21 06:57 | NUR ---
Ambulated to toilet. + void.
[2020-10-21] MEDS ORDERED: PANTOPRAZOLE 40 MG TABLET.DR. PO SCH (07:30)
[2020-10-21] MEDS: PIOGLITAZONE 15 MG TABLET. PO SCH ×2 (08:00→12:08)
--- NOTE | 2020-10-21 08:00 | NUR ---
sitting up in chair dressing has a scant amount of drainage. states pain is better at this time. he denies numbness or tingling. He has good strength, sensation and pulses.
[2020-10-21] MEDS: DOCUSATE SODIUM 100 MG CAPSULE. PO SCH (08:42)
[2020-10-21] MEDS: metFORMIN 850 MG TABLET PO SCH ×2 (08:42→12:08)
[2020-10-21] MEDS: GABAPENTIN 300 MG CAPSULE. PO SCH ×2 (08:43→12:08)
[2020-10-21] MEDS ORDERED: DULoxetine HCL 30 MG CAPSULE.DR PO SCH (09:00)
[2020-10-21] MEDS ORDERED: buPROPion XL 150 MG TAB.ER.24H. PO SCH (09:00)
[2020-10-21] MEDS ORDERED: ATORVASTATIN CALCIUM 40 MG TABLET. PO SCH (09:00)
[2020-10-21] MEDS ORDERED: glipiZIDE 5 MG TABLET PO SCH (09:00)
[2020-10-21 11:00] VITALS: BP 136/66
[2020-10-21] MEDS ORDERED: OXYC1TAB15 PO (11:20)
[2020-10-21] MEDS ORDERED: DOCU-153 PO (11:20)
--- NOTE | 2020-10-21 11:21 | DISCH ---
DISCHARGE INSTRUCTIONS Condition on Discharge Condition on Discharge: Stable Activity After Discharge Activity Instructions for Disc: Activity as tolerated, Avoid exertion, Walk in house Other activity instructions: ambulation only exercise premitted. gradually increase time and distance Bathing Instructions: Shower-keep dressing dry, No Tub Bath until see Lifting Instructions after Dis: No heavy lifting, No pulling or pushing, Do not lift >10 pounds Exercise Instruction after Dis: Progress as tolerated Driving Instructions after Dis: No driving for 2 weeks Weight Bearing Status after Di: No restrictions, Full weight bearing, As tolerated Diet after Discharge Diet after Discharge: Diabetic No Calorie Level Wound Incision Care Wound/Incision Care: Ice to area for comfort, Change dressing Other wound/incision instructi: change dressing after shower, clean with swabstick then apply dressings Wound Care Equipment: Dressings Checks after Discharge Checks after discharge: Check blood sugar, ac/hs DC Comment: increase fruits, vegetables and fiber, attempt BM every other day Follow-Up Follow Up With: call [phone] for a 2 week post op appt with Dr.. Griffin/Mine Treatment/Equipment after DC Adaptive Equipment Issued: BRITTANI Covarrubias MD Oct 21, 2020 11:21
[2020-10-21] MEDS: oxyCODONE/APAP 5/325 1 TAB TABLET PO PRN (12:08)
--- NOTE | 2020-10-21 12:30 | NUR ---
reviewed discharge instructions with patient and . reviewed restrictions to activities of daily living.such as bathing and driving. reviewed new medication pain med and the need for a stool softener. demonstrated dressing change to . dressings given.
--- NOTE | 2020-10-21 13:15 | NUR ---
dismissed to home with belongings and dressings cpap clothing
--- NOTE | 2020-10-22 17:20 | OP ---
DATE OF SURGERY: 10/20/2020 PREOPERATIVE DIAGNOSES: Lumbar spinal stenosis L4-5 with symptomatic neurogenic claudication. POSTOPERATIVE DIAGNOSES: Lumbar spinal stenosis L4-5 with symptomatic neurogenic claudication. OPERATION PERFORMED: Left direct laminectomy, L4-5. This is a reoperation. The operation was done with EMG monitoring, SSEP monitoring, fluoroscopy, microscopic dissection. SPECIMEN: Decompression. SURGEON: Lew Griffin M.D. MUD ANALYSIS OPERATOR: CAMACHO Solo assisted with the surgery. She assisted with the exposure, the laminectomy as well as the closure. OPERATIVE INDICATIONS: The patient is a very pleasant 70-year-old who developed intractable back and bilateral leg symptoms, was found to have significant stenosis at L4-L5. He has had previous surgery at that level. Epidural steroid injections had been done in the past, which only helped temporarily. He also had recent epidurals, which again only helped for a very short time. He has above-mentioned findings on imaging studies. I recommended surgery and he wished to go ahead. DESCRIPTION OF PROCEDURE: Following general endotracheal anesthesia, the patient was positioned prone on the Ministerio table. Lumbar region prepped and draped in standard fashion. XOCHITL hose and AV impulse boots were applied for DVT prophylaxis. The microscope was draped, fluoroscopy was draped and brought in the field. Monitoring was established. Ancef 3 grams was given less than one hour prior to initiation of surgery. Using fluoroscopic guidance, a midline incision was made in corporation to the portion of his previous incision extending slightly above that. I dissected down through skin and subcutaneous tissue, reflected the paraspinal muscles and exposed L4-5 with some difficulty. There was very dense and thick scar, which I gradually was able to free away. I did use 80 mm retractors to reach down to the lamina and I was able to create an exposure. On the right side, there had been significant bone removal and a great deal of scar and I felt that entering this side will be problematic. I went to the left side, I brought in the microscope and using the high speed air drill, I burred down a generous hemilaminotomy. I tilted the patient away from me and I drilled across the midline and then I trimmed with the 2.5 mm Fehling Kerrison from medial to lateral, superiorly to inferiorly and then performed a partial foraminotomy. I peeled away very thickened ligamentum flavum, which was significantly scarred to the underlying dura and made this portion of the operation difficult, but as I worked, I was able to free up the ligament and peel it away and well decompressed the entire region. The dura and nerve roots were well decompressed. The disc was firm, no discectomy was warranted. I did trim across to the contralateral side. I irrigated copiously. At this point, I felt that I had an excellent decompression and that the risks of further decompressive work outweigh the benefits in view of all of the scarred material. I irrigated, I obtained excellent hemostasis after removing the retractors and the muscle and then I irrigated again and then I closed the wound in layers with absorbable suture and skin was closed with 4-0 subcuticular stitch. The patient awakened uneventfully, taken to recovery room in excellent condition with normal strength in his lower extremities. I was quite pleased with the surgery. VIC/GARCIA/[facility] [place] DR: Sheila TID: [id number] CHANELL
--- NOTE | 2020-10-25 17:07 | PATHOLOGY ---
[facility] Accession Number: [id number] . 01 Material submitted: . vertebral column - LUMBAR DECOMPRESSION. Modifiers: LUMBAR . 01 Clinical history: . LUMBAR STENOSIS LUMBAR LAMINECTOMY L4-5 . 02 Diagnosis: Segments of fibrocartilaginous, fibroadipose, and skeletal muscle tissue and bone, lumbar decompression: - Degenerative changes of fibrocartilaginous tissue. LBQ 10/25/2020 1217 Local . 02 Comment: There is no evidence of an acute inflammatory process or malignancy. (JPM/db; 10/25/2020) . 02 Electronically signed: . Peña Pandya MD, Pathologist NPI- [id number] . 01 Gross description: . The specimen is received in formalin, labeled "Juan Antonio Lebron and #1 lumbar decompression". It consists of multiple tolbert-brown, irregular bony and soft tissue fragments measuring 6.0 x 4.0 x 0.5 cm in aggregate. Represent sections are placed in a biopsy bag and submitted in A1 following decalcification. (MRF; 10/22/2020) MFE/MFE 10/22/2020 1825 Local . 02 Pathologist provided ICD-10: M99.73 . 02 CPT . 478557, [id number] Specimen Comment: A courtesy copy of this report has been sent to [phone] Specimen Comment: 1975 Specimen Comment: Report sent to / DR PATTERSON Performed at: 01 [facility] [address], [place] [id number] MD Justino Fish MD Phone: [phone] Performed at: 02 [facility] [address] [place], [place] [id number] MD Peña Pandya MD Phone: [phone]
== END 2020-10-21 13:15 | disposition home or self-care (01) ==
LOC: SURG 10:10 → 4 SOUTHEST 21:15
PROVIDERS: ADMIT Neurological Surgery; ATTEND Neurological Surgery
DX: M48.062 Spinal stenosis, lumbar region with neurogenic claudication (principal); E11.9 Type 2 diabetes mellitus without complications; M19.90 Unspecified osteoarthritis, unspecified site; R07.89 Other chest pain; N28.9 Disorder of kidney and ureter, unspecified; F17.210 Nicotine dependence, cigarettes, uncomplicated; Z79.84 Long term (current) use of oral hypoglycemic drugs; Z79.899 Other long term (current) drug therapy; Z98.890 Other specified postprocedural states
CPT/HCPCS: 63042; 82962; 88304; 88311; 96360; 96361; 97116; 97162; 97530; A4364; A4556; A4930; A6254; A6258; G0378; G0379; J0690; J1100; J1815; J1885; J2370; J2405; J2704; J2710; J3010; J3480; J3490; 76000; A4222; A4315; J7613